=== PATIENT | male | born 1975 | race Two or more races ===

== ENCOUNTER 2022-08-20 11:30 | Emergency (ER) | payer OTHER ==
[~2022-08-20] VITALS: Ht 170.2 cm; Wt 100.0 kg
[2022-08-20 15:02] VITALS: BP 136/91
== END 2022-08-20 15:07 | disposition home or self-care (01) ==
LOC: EMS 11:34
DX: M25.562 Pain in left knee (principal); F17.210 Nicotine dependence, cigarettes, uncomplicated; I10 Essential (primary) hypertension
CPT/HCPCS: 99283